=== PATIENT | female | born 1970 | race Asian ===

== ENCOUNTER 2016-10-11 05:44 | Day surgery (SDC) | payer OTHER ==
[~2016-10-11] VITALS: Ht 154.9 cm; Wt 64.5 kg
[~2016-10-11 05:44] MED LIST: ACETAMINOPHEN/CODEINE 300-30 MG TABLET PO PRN; FentaNYL CITRATE-PF 100 MCG/2 ML VIAL IVP ONE; MIDAZOLAM HCL 2 MG/2 ML VIAL IVP ONE
[2016-10-11] MEDS ORDERED: TETRACAINE HCL 0.5% 2 ML OPHTHALMIC SOLUTION ONE (06:03)
[2016-10-11] MEDS ORDERED: RINGERS SOLUTION,LACTATED 500 ML IV ONE ×2 (06:03→07:00)
[2016-10-11] MEDS ORDERED: ACETAMINOPHEN/CODEINE 300-30 MG TABLET PO PRN (07:00)
[2016-10-11] MEDS ORDERED: MitoMYcin 0.2 MG/VIAL KIT FOR OPHTHALMIC USE OD ONE (07:00)
[2016-10-11] MEDS: TETRACAINE HCL 0.5% 2 ML OPHTHALMIC SOLUTION OD SCH ×2 (07:38→07:44)
[2016-10-11] MEDS ORDERED: BALANCED SALT 15 ML OPHTHALMIC IRRIG.SOLN OS ONE (17:21)
[2016-10-11] MEDS ORDERED: NEOMYCIN/POLYMYXIN B/DEXAMETH 3.5 GM OPHTHALMIC OINTMENT OS ONE (17:21)
[2016-10-11] MEDS ORDERED: LIDOCAINE HCL 2%/EPI 1:200,000/PF 10 ML VIAL IM ONE (17:21)
[2016-10-11] MEDS ORDERED: TETRACAINE HCL 0.5% 2 ML OPHTHALMIC SOLUTION OS ONE (17:21)
[2016-10-11] MEDS ORDERED: MOXIFLOXACIN HCL 0.5% 3 ML OPHTHALMIC SOLUTION OS ONE (17:21)
[2016-10-11] MEDS ORDERED: POVIDONE-IODINE 10% 15 ML SOLUTION UD TP ONE (17:21)
[2016-10-11] MEDS ORDERED: TETRACAINE HCL VISCOUS 0.5% 0.6 ML OPHTHALMIC SOLUTION OS ONE (17:21)
== END 2016-10-11 10:30 | disposition home or self-care (01) ==
LOC: SURGERY 05:44
PROVIDERS: ATTEND Ophthalmology
DX: H11.001 Unspecified pterygium of right eye (principal); M54.9 Dorsalgia, unspecified; Z98.890 Other specified postprocedural states
CPT/HCPCS: 65426; 88304; 93005; C1768; J2250; J3010; J7120; J3490